=== PATIENT | female | born 1990 | race Two or more races ===

== ENCOUNTER 2019-05-26 18:03 | Emergency (ER) | payer SELFPAY ==
[~2019-05-26] VITALS: Ht 162.6 cm; Wt 102.1 kg
[~2019-05-26 18:03] MED LIST: Acetaminophen PO; SULF1TAB48 PO
--- NOTE | 2019-05-26 19:05 | NUR ---
RECEIVED HAND OFF AND SBAR FR OUTGOING DAY SHIFT RN PT SP I&D PYLONIDAL ABSCESS X 3DAYS DONE BY SHANTA PT IS ON PRONE, WITH PACKING STRIP ON SITE CLEANED SITE PACKED WITH DRESSING PT IS AOX3, NAD ABLE TO FOLLOW COMMANDS, CALM AND COMPLIANT
[2019-05-26] MEDS ORDERED: HYDROCODONE/APAP 10-325 MG TABLET ONE (19:24)
[2019-05-26] MEDS ORDERED: HYDROCODONE/APAP 10-325 MG TABLET PO ONE (19:30)
--- NOTE | 2019-05-26 19:37 | NUR ---
Patient discharged to home in stable conditon. Written and verbal after care instructions given. Patient verbalizes understanding of instructions. AMBULATORY W/ GAIT ALL BELONGINGS W/ PT WILL DRIVE
[2019-05-26 19:41] VITALS: BP 135/89
== END 2019-05-26 19:41 | disposition home or self-care (01) ==
LOC: ER 18:05
DX: L05.01 Pilonidal cyst with abscess (principal); Z79.899 Other long term (current) drug therapy
CPT/HCPCS: A4663